=== PATIENT | male | born 1955 | race Caucasian/White ===

== ENCOUNTER 2016-12-17 12:10 | Emergency (ER) | payer OTHER ==
[~2016-12-17] VITALS: Ht 177.8 cm; Wt 84.8 kg
[~2016-12-17 12:10] MED LIST: AMOXICILLIN500 M2 PO; ASPIR 8181 MG PO; CETIRIZINE10 MG PO; CYCLOBENZAPRINE5 M1 PO; FUROSEMIDE20 M1 PO; GLUCOPHAGE1000 MG PO; GLUCOPHAGE500 MG PO; ISOSORBIDE DINITRATE 5 MG PO; K-DUR10 MEQ PO; METOPROLOL TART25 MG PO; MICRONASE5 MG PO; NEURONTIN300 MG PO; NITROSTAT0.4 M1 SL; NORCO 325 MG-51 TAB PO; NOVOLOG100 U/ML SUBQ; [UNRECOGNIZED DRUG - OTHER] TP
[2016-12-17 12:12] VITALS: BP 162/102
--- NOTE | 2016-12-17 13:19 | NUR ---
Patient ambulated to bed 1. RN evaluating patient at bedside.
[2016-12-17] MEDS ORDERED: NACL 0.9% 1,000 ML IV SCH (13:20)
[2016-12-17] MEDS ORDERED: KETOROLAC 30 MG/ML VIAL IVP ONE (13:25)
--- NOTE | 2016-12-17 13:30 | NUR ---
PATIENT PRESENTS TO ED WITH PT BIBA FOR EVALUATION OF LEFT SHOULDER PAIN. PT DENIES ANY RECENT FALLS OR TRAUMA. HX HEP C, HTN, DM, HYPERLIPIDEMIA, CAD. DENIES N/V/D; SKIN IS PINK/WARM/DRY; AAOX4 WITH EVEN AND STEADY GAIT; LUNGS CLEAR BL; HR EVEN AND REGULAR; PT DENIES ANY FEVER, CP, SOB, OR COUGH AT THIS TIME; PATIENT STATES PAIN OF 9/10 AT THIS TIME; VSS; PATIENT POSITIONED FOR COMFORT; HOB ELEVATED; BEDRAILS UP X2; BED DOWN. ER MD MADE AWARE OF PT STATUS.
[2016-12-17 16:21] VITALS: BP 128/83
--- NOTE | 2016-12-17 16:21 | NUR ---
Patient discharged with v/s stable. Written and verbal after care instructions given and explained. Patient alert, oriented and verbalized understanding of instructions. Ambulatory with steady gait. All questions addressed prior to discharge. ID band removed. Patient advised to follow up with PMD. Rx of TRAMADOL 50 MG given. Patient educated on indication of medication including possible reaction and side effects. Opportunity to ask questions provided and answered.
== END 2016-12-17 16:21 | disposition home or self-care (01) ==
LOC: MED 12:10
DX: M19.012 Primary osteoarthritis, left shoulder (principal); F15.10 Other stimulant abuse, uncomplicated; I10 Essential (primary) hypertension; E78.00 Pure hypercholesterolemia, unspecified; F17.210 Nicotine dependence, cigarettes, uncomplicated; E11.9 Type 2 diabetes mellitus without complications; I25.2 Old myocardial infarction; Z79.82 Long term (current) use of aspirin; Z79.899 Other long term (current) drug therapy; Z71.6 Tobacco abuse counseling
CPT/HCPCS: 36415; 71010; 80053; 80305; 81001; 82553; 83880; 84484; 85025; 85379; 85610; 85730; 93005; 96361; 96374; 99285; J1885; J7030